=== PATIENT | male | born 1975 | race Caucasian/White ===

== ENCOUNTER 2017-09-15 13:04 | Emergency (ER) | payer SELFPAY ==
[2015-09-25 11:23] VITALS: Ht 188 cm; Wt 139.3 kg
[~2017-09-15] VITALS: Ht 188 cm; Wt 139.3 kg
[~2017-09-15 13:04] MED LIST: ALBU8.5H12 IH; AMOX-362 PO; AZIT-1 PO; BENZ100C4 PO; CALC-515 PO; CEP250 PO; CETI10CA8 PO; CITA-155 PO; CYC10 PO; CYCL10TA29 PO; DIA5 PO; DOCU-416 PO; GABA-549 PO; HYDR-2966 PO; HYDR-4309 PO; IBUP-1671 PO; IBUP-2704 PO; IBUP600T22 PO; KET10 PO; LIS10 PO; LOR5/325 PO; LOSA50TA72 PO; MELO-207 PO; MULT-1335 PO; NAPR-744 PO; NAPR220C12 PO; NAPR550T20 PO; ONDA4TAB PO; ONDA4TAB9 PO; OXYB10TA21 PO; OXYC-373 PO; OXYC-856 PO; OXYC-865 PO; OXYC-869 PO; PER PO; PHEN200T32 PO; PRE10 PO; PRED20TA6 PO; PROM-110 PO; TAM4 PO; TAMS0.4C25 PO; TRAZ5POW MC
[2017-09-15] MEDS ORDERED: NS(*) 0.9% 1000 ML BAG 1,000 ML IV ONE (13:23)
[2017-09-15] MEDS ORDERED: ONDANSETRON 4 MG/2 ML VIAL IVP ONE (13:25)
--- NOTE | 2017-09-15 13:31 | ER Report ---
History and Physical Time Seen By MD: 13:27 Hx. of Stated Complaint: ABDOMINAL CRAMPING AND N/V/D SINCE 09/12 HPI/ROS CHIEF COMPLAINT: Abdominal pain HISTORY OF PRESENT ILLNESS: Diffuse cramps associated with diarrhea no bright red blood "20 episodes" last 24 hours per patient report associated with vomiting no fevers or chills positive sick contacts similar syndrome no recent travel no recent antibiotics REVIEW OF SYSTEMS: Constitutional: No fever, no chills. Eyes: No discharge. ENT: No sore throat. Cardiovascular: No chest pain, no palpitations. Respiratory: No cough, no shortness of breath. Gastrointestinal: Gas, bloating Genitourinary: No hematuria. Musculoskeletal: No back pain. Skin: No rashes. Neurological: No headache. Allergies: Coded Allergies: BEE STINGS (Verified Allergy, Severe, ANAPHYLAXIS, 09/15/17) Uncoded Allergies: MINT (Adverse Reaction, Severe, HIVES, THROAT CLOSES, anaphylaxis, 09/24/15) Home Meds Reported Medications Trazodone Hcl (TRAZODONE HCL) 5 Gm Powder, 5 GM MC 08/04/17 Citalopram Hydrobromide (CELEXA) 10 Mg Tablet, 10 MG PO QDAY, #5 TAB 08/04/17 Gabapentin (GABAPENTIN) 300 Mg Capsule, 300 MG PO TID, CAPSULE 08/04/17 Cyclobenzaprine Hcl (CYCLOBENZAPRINE HCL) 10 Mg Tablet, 10 MG PO TID, #9 TAB 08/04/17 Hydrochlorothiazide (HYDROCHLOROTHIAZIDE) 25 Mg Tablet, 1 TAB PO QDAY, TAB 08/04/17 Losartan Potassium (LOSARTAN POTASSIUM) 50 Mg Tablet, 50 MG PO QDAY 05/11/16 Naproxen Sodium (ALEVE) 220 Mg Capsule, 220 MG PO PRN, CAPSULE 02/27/16 Multivitamin With Minerals (MULTIPLE VITAMIN) 1 Each Tablet, 1 EACH PO DAILY 10/02/15 Cetirizine Hcl (ZYRTEC) 10 Mg Capsule, 10 MG PO PRN Y for allergies 06/21/13 Discontinued Scripts Prednisone (PREDNISONE) 20 Mg Tablet, 40 MG PO QDAY, #10 TAB Prov:ASIYA ARCOSP-BC 08/04/17 Amoxicillin (AMOXICILLIN) 500 Mg Capsule, 2 CAP PO Q12H, #14 CAPSULE Prov:ASIYA ARCOSP-BC 08/04/17 Hx Smoking: No Smoking Status: Never Smoker Exposure to Second Hand Smoke?: No Hx Substance Use Disorder: No Hx Alcohol Use: No Constitutional Vital Sign - Last 24 Hours 09/15/17 09/15/17 09/15/17 09/15/17 13:16 13:20 13:30 13:34 Temp 98.0 Pulse 83 76 Resp 20 B/P (MAP) 141/91 (108) 141/91 131/83 (99) Pulse Ox 95 93 O2 Delivery Room Air 09/15/17 09/15/17 09/15/17 09/15/17 14:00 14:04 14:30 14:34 Pulse 73 B/P (MAP) 113/68 (83) 126/77 (93) Pulse Ox 87 91 Physical Exam General Appearance: The patient is alert, has no immediate need for airway protection and no signs of toxicity. He appears in no acute distress Eyes: Pupils equal and round no pallor or injection. ENT, Mouth: Mucous membranes are moist. Respiratory: There are no retractions, lungs are clear to auscultation. Cardiovascular: Regular rate and rhythm. No murmurs gallops or rubs Gastrointestinal: Abdomen is soft and diffusely tender, no masses, bowel sounds normal. Neurological: Normal gross neuro exam Skin: Warm and dry, no rashes. Musculoskeletal: Neck is supple non tender. Extremities are nontender, nonswollen and have full range of motion. No edema DIFFERENTIAL DIAGNOSIS: After history and physical exam differential diagnosis was considered for gastritis, gastroenteritis, enteritis, colitis, diverticulitis, enterotoxigenic Escherichia coli, Yersinia, Campylobacter, viral GI illness, aortic aneurysm less likely Medical Decision Making Data Points Result Diagram: 09/15/17 1333 09/15/17 1333 Laboratory Hematology Test 09/15/17 13:33 09/15/17 14:07 Red Blood Count 4.56 M/uL (4.00-5.60) Mean Corpuscular Volume 91.6 fL (80.0-96.0) Mean Corpuscular Hemoglobin 32.1 pg (26.0-33.0) Mean Corpuscular Hemoglobin Concent 35.1 g/dL (32.0-36.0) Red Cell Distribution Width 13.3 % (11.5-14.5) Mean Platelet Volume 7.3 fL (7.2-11.1) Neutrophils (%) (Auto) 63.7 % (39.4-72.5) Lymphocytes (%) (Auto) 22.8 % (17.6-49.6) Monocytes (%) (Auto) 10.2 % (4.1-12.4) Eosinophils (%) (Auto) 2.4 % (0.4-6.7) Basophils (%) (Auto) 0.9 % (0.3-1.4) Nucleated RBC Relative Count (auto) 0.1 /100WBC Neutrophils # (Auto) 3.6 K/uL (2.0-7.4) Lymphocytes # (Auto) 1.3 K/uL (1.3-3.6) Monocytes # (Auto) 0.6 K/uL (0.3-1.0) Eosinophils # (Auto) 0.1 K/uL (0.0-0.5) Basophils # (Auto) 0.1 K/uL (0.0-0.1) Nucleated RBC Absolute Count (auto) 0.00 K/uL Sodium Level 139 mmol/L (137-145) Potassium Level 3.6 mmol/L (3.5-5.0) Chloride Level 102 mmol/L (98-107) Carbon Dioxide Level 24 mmol/L (22-30) Blood Urea Nitrogen 8 mg/dl (9-21) Creatinine 0.90 mg/dl (0.66-1.25) Glomerular Filtration Rate Calc > 60.0 Random Glucose 105 mg/dl (75-110) Calcium Level 8.9 mg/dl (8.4-10.2) Total Bilirubin 0.5 mg/dl (0.2-1.3) Aspartate Amino Transf (AST/SGOT) 51 U/L (0-35) Alanine Aminotransferase (ALT/SGPT) 82 U/L (0-56) Alkaline Phosphatase 68 U/L (0-126) Total Protein 6.7 gm/dl (6.3-8.2) Albumin 3.8 g/dl (3.5-5.0) Lipase 51 U/L (23-300) Urine Color Yellow Urine Clarity Clear Urine pH 6.0 pH (4.8-9.5) Urine Specific Wanda 1.017 Urine Protein Negative mg/dL (NEGATIVE) Urine Glucose (UA) Negative mg/dL (NEGATIVE) Urine Ketones Negative mg/dL (NEGATIVE) Urine Blood Negative (NEGATIVE) Urine Nitrite Negative (NEGATIVE) Urine Bilirubin Negative (NEGATIVE) Urine Urobilinogen Negative mg/dL (0.2-1.9) Urine Leukocyte Esterase Negative (NEGATIVE) Urine RBC None /HPF (0-2/HPF) Urine WBC 1 /HPF (0-5/HPF) Urine Squamous Epithelial Cells None /LPF (</=FEW) Urine Bacteria Negative /HPF (NONE-FEW) Urine Mucus None /HPF (NONE-FEW) Chemistry Test 09/15/17 13:33 09/15/17 14:07 White Blood Count 5.7 k/uL (4.5-11.0) Red Blood Count 4.56 M/uL (4.00-5.60) Hemoglobin 14.7 g/dL (14.0-18.0) Hematocrit 41.8 % (42.0-52.0) Mean Corpuscular Volume 91.6 fL (80.0-96.0) Mean Corpuscular Hemoglobin 32.1 pg (26.0-33.0) Mean Corpuscular Hemoglobin Concent 35.1 g/dL (32.0-36.0) Red Cell Distribution Width 13.3 % (11.5-14.5) Platelet Count 201 K/uL (150-450) Mean Platelet Volume 7.3 fL (7.2-11.1) Neutrophils (%) (Auto) 63.7 % (39.4-72.5) Lymphocytes (%) (Auto) 22.8 % (17.6-49.6) Monocytes (%) (Auto) 10.2 % (4.1-12.4) Eosinophils (%) (Auto) 2.4 % (0.4-6.7) Basophils (%) (Auto) 0.9 % (0.3-1.4) Nucleated RBC Relative Count (auto) 0.1 /100WBC Neutrophils # (Auto) 3.6 K/uL (2.0-7.4) Lymphocytes # (Auto) 1.3 K/uL (1.3-3.6) Monocytes # (Auto) 0.6 K/uL (0.3-1.0) Eosinophils # (Auto) 0.1 K/uL (0.0-0.5) Basophils # (Auto) 0.1 K/uL (0.0-0.1) Nucleated RBC Absolute Count (auto) 0.00 K/uL Glomerular Filtration Rate Calc > 60.0 Calcium Level 8.9 mg/dl (8.4-10.2) Total Bilirubin 0.5 mg/dl (0.2-1.3) Aspartate Amino Transf (AST/SGOT) 51 U/L (0-35) Alanine Aminotransferase (ALT/SGPT) 82 U/L (0-56) Alkaline Phosphatase 68 U/L (0-126) Total Protein 6.7 gm/dl (6.3-8.2) Albumin 3.8 g/dl (3.5-5.0) Lipase 51 U/L (23-300) Urine Color Yellow Urine Clarity Clear Urine pH 6.0 pH (4.8-9.5) Urine Specific Wanda 1.017 Urine Protein Negative mg/dL (NEGATIVE) Urine Glucose (UA) Negative mg/dL (NEGATIVE) Urine Ketones Negative mg/dL (NEGATIVE) Urine Blood Negative (NEGATIVE) Urine Nitrite Negative (NEGATIVE) Urine Bilirubin Negative (NEGATIVE) Urine Urobilinogen Negative mg/dL (0.2-1.9) Urine Leukocyte Esterase Negative (NEGATIVE) Urine RBC None /HPF (0-2/HPF) Urine WBC 1 /HPF (0-5/HPF) Urine Squamous Epithelial Cells None /LPF (</=FEW) Urine Bacteria Negative /HPF (NONE-FEW) Urine Mucus None /HPF (NONE-FEW) Urinalysis Test 09/15/17 14:07 Urine Color Yellow Urine Clarity Clear Urine pH 6.0 pH (4.8-9.5) Urine Specific Wanda 1.017 Urine Protein Negative mg/dL (NEGATIVE) Urine Glucose (UA) Negative mg/dL (NEGATIVE) Urine Ketones Negative mg/dL (NEGATIVE) Urine Blood Negative (NEGATIVE) Urine Nitrite Negative (NEGATIVE) Urine Bilirubin Negative (NEGATIVE) Urine Urobilinogen Negative mg/dL (0.2-1.9) Urine Leukocyte Esterase Negative (NEGATIVE) Urine RBC None /HPF (0-2/HPF) Urine WBC 1 /HPF (0-5/HPF) Urine Squamous Epithelial Cells None /LPF (</=FEW) Urine Bacteria Negative /HPF (NONE-FEW) Urine Mucus None /HPF (NONE-FEW) ED Course/Re-evaluation ED Course Plan of care was agreed upon prior to ordering of tests Decision to Disposition Date: Sep 15, 2017 Decision to Disposition Time: 15:14 Depart Departure Latest Vital Signs Vital Signs Date Time Temp Pulse Resp B/P (MAP) Pulse Ox O2 Delivery O2 Flow Rate FiO2 09/15/17 14:34 73 91 09/15/17 14:30 126/77 (93) 09/15/17 13:20 98.0 20 Room Air Impression: Primary Impression: Gastroenteritis Additional Impression: Vomiting and diarrhea Condition: Improved Disposition: HOME OR SELF-CARE New Scripts Loperamide Hcl/Simethicone (IMODIUM MULTI-SYMPTOM REL CPLT) 1 Each Tablet 1 EACH PO DIRECTED Y for DIARRHEA for 7 Days, #14 CAP Prov: KAYLA WOOTEN MD 09/15/17 Ondansetron (ZOFRAN ODT) 4 Mg Tab.rapdis 4 MG PO Q6H Y for NAUSEA/VOMITING, #20 TAB.ADEBAYO 0 Refills Prov: KAYLA WOOTEN MD 09/15/17 Dicyclomine Hcl (BENTYL) 10 Mg Capsule 20 MG PO QID for PAIN for 10 Days, #30 CAPSULE Prov: KAYLA WOOTEN MD 09/15/17 Patient Instructions: Gastroenteritis (ED) Problem Qualifiers KAYLA WOOTEN MD Sep 15, 2017 13:31
[2017-09-15 13:48] LABS: PLATELET COUNT, AUTOMATED 201 K/uL (150-450)
[2017-09-15 15:00] VITALS: BP 125/78
[2017-09-15] MEDS ORDERED: DICY-42 PO (15:18)
[2017-09-15] MEDS ORDERED: LOPE1TAB55 PO (15:18)
[2017-09-15] MEDS ORDERED: ONDA4TAB PO (15:18)
== END 2017-09-15 15:32 | disposition home or self-care (01) ==
LOC: ER 13:15
DX: K52.9 Noninfective gastroenteritis and colitis, unspecified (principal)
CPT/HCPCS: 81001; 83690; 85025; 96361; 96374; 99284; J2405; J7030; 82040; 82247; 82310; 82374; 82435; 82565; 82947; 84075; 84132; 84155; 84295; 84450; 84460; 84520